=== PATIENT | female | born 1990 ===

== ENCOUNTER 2021-11-03 15:24 | Outpatient (CLI) | payer OTHER | END 2021-11-03 16:35 | disposition home or self-care (01) | LOC: PRENATAL 15:24 | PROVIDERS: ATTEND Obstetrics & Gynecology Maternal & Fetal Medicine | DX: O36.80X0 Pregnancy with inconclusive fetal viability, not applicable or unspecified (principal); Z36.0 Encounter for antenatal screening for chromosomal anomalies; Z3A.11 11 weeks gestation of pregnancy ==

== ENCOUNTER 2021-11-28 08:17 | Outpatient (CLI) | payer OTHER | END 2021-11-28 08:18 | disposition home or self-care (01) | LOC: SONOGRAMA 08:17 | PROVIDERS: ATTEND Internal Medicine Hematology & Oncology | DX: R16.1 Splenomegaly, not elsewhere classified (principal); D57.1 Sickle-cell disease without crisis; Z3A.12 12 weeks gestation of pregnancy ==

== ENCOUNTER 2022-01-19 14:56 | Outpatient (CLI) | payer OTHER | END 2022-01-19 16:01 | disposition home or self-care (01) | LOC: PRENATAL 14:56 | PROVIDERS: ATTEND Obstetrics & Gynecology Maternal & Fetal Medicine | DX: O35.0XX0 Maternal care for (suspected) central nervous system malformation in fetus, not applicable or unspecified (principal); O35.3XX0 Maternal care for (suspected) damage to fetus from viral disease in mother, not applicable or unspecified; O26.879 Cervical shortening, unspecified trimester; Z3A.22 22 weeks gestation of pregnancy ==

== ENCOUNTER 2022-05-09 13:00 | Inpatient (IN) | payer OTHER ==
[~2022-05-09] VITALS: Ht 160 cm; Wt 64.0 kg
== END 2022-05-13 14:39 | disposition home or self-care (01) | DRG 807 ==
LOC: LDR 05-10 20:13 → OB/GYN 05-12 13:07 → LDR 05-12 13:20 → OB/GYN 05-12 13:22
PROVIDERS: ADMIT Obstetrics & Gynecology; ATTEND Obstetrics & Gynecology
PROC: 4A1HXCZ Monitoring of Products of Conception, Cardiac Rate, External Approach (ICD-10-PCS; 2022-05-10)
PROC: 10E0XZZ Delivery of Products of Conception, External Approach (ICD-10-PCS; principal; 2022-05-11)
PROC: 0KQM0ZZ Repair Perineum Muscle, Open Approach (ICD-10-PCS; 2022-05-11)
DX: O70.1 Second degree perineal laceration during delivery (principal); Z37.0 Single live birth; O99.824 Streptococcus B carrier state complicating childbirth; Z3A.38 38 weeks gestation of pregnancy; Z20.822 Contact with and (suspected) exposure to COVID-19